=== PATIENT | male | born 1940 | race Caucasian/White ===

== ENCOUNTER → 2016-04-09 | Outpatient (CLI) | payer OTHER ==
[~2016-04-09] MED LIST: ADULT LOW DOSE81 M1 PO; ADVAIR HFA120 INHAL1 IH; ASCORBIC ACID100 MG PO; ASPIR 8181 M1 PO; ASPIRIN E.C.81 M1 PO; ASPIRIN81 M2 PO; AVANDAMET PO; Advair HFA 230/21 IH; Aspirin Chewable PO; CEFTIN500 MG PO; CENTRUM SILVER1 EACH PO; CLARITIN,ALAVAR10 MG PO; Claritin,Alavart PO; DIGOXIN PO; DIGOXIN125 MCG PO; DIGOXIN250 MCG PO; DUONEB 2.5-0.5 M3 ML IH; ENDOCET 5-3251 EACH PO; FISH OIL; FISH OIL 1,0001 EA10 PO; FISH OIL CONC1 EACH PO; FISH OIL PO; FISH OIL SOFTG1 EACH PO; FLONASE16 G1 BOTH NARES; Fish Oil PO; Flonase BOTH NARES; GLIPIZIDE XL10 M1 PO; GLUTOSE 1537.5 GM PO; HUMALOG; HUMALOG100 UNIT/1 SC; LANOXIN,DIGIT0.25 MG PO; LANOXIN125 MCG PO; LANTUS 10100 UNITS/ SC; LANTUS 3 M100 UNITS/ SC; LANTUS 3 M100 UNITS1 SC; LASIX20 MG PO; LAXATIVE5 M1 PO; LIDODERM 5% P1 PATCH TD; LISINOPRIL10 MG PO; LISINOPRIL20 MG PO; Levaquin PO; METOPROLOL SUCC25 MG PO; METOPROLOL SUCC50 MG PO; MUCINEX600 MG PO; MULTIVITAMIN1 EAC2 PO; NOHOMEMEDS; NORCO 5/3251 TABLET PO; NOVOLOG 10100 UNITS/ SC; NOVOLOG PE100 UNITS/ SC; NOVOLOG100 UNIT/1 SQ; Nitrostat,NitroQuick SL; Oscal 500 w/Vitamin PO; PRADAXA150 MG PO; Pradaxa PO; Pravachol PO; REMEDY ANTIFUNG85 GM TP; SIMVASTATIN10 M1 PO; SIMVASTATIN10 MG PO; SIMVASTATIN40 MG PO; SPIRIVA1 INHALATI IH; SYMBICORT60 INHALAT IH; Senokot S,Pericolace PO; Symbicort 160-4.5 mc IH; THERAGRAN1 TABLET PO; TOPROL XL50 MG PO; TYLENOL ARTHRI650 MG PO; TYLENOL REGULA325 MG PO; Theragran PO; Toprol XL PO; Tylenol/Codeine #3 PO; VITAMIN D-32000 UNIT PO; VITAMIN D2000 UNIT PO; VITAMIN D400 UNIT PO; VITAMIN E PO; VITAMIN E400 UNI3 PO; Vitamin D PO; ZESTRIL,PRINIVI10 M1 PO; ZESTRIL10 MG PO; ZITHROMAX Z-PA250 MG PO; ZOCOR10 MG PO; ZOFRAN4 MG PO; Zestril,Prinivil PO; Zocor PO; predniSONE PO; unknown meds
== END ==
LOC: RAD 13:15
DX: R13.11 Dysphagia, oral phase (principal); R68.89 Other general symptoms and signs; R63.3 Feeding difficulties
CPT/HCPCS: 74230; 92611 GN; G8996 GN CI; G8997 GN CI; G8998 GN CI

== ENCOUNTER 2016-07-17 16:42 | Inpatient (IN) | payer OTHER ==
[~2016-07-17] VITALS: Ht 170.2 cm; Wt 66.1 kg
[2016-07-17 18:34] LABS: CHLORIDE 105 mEq/L (99-109); SODIUM 141 mEq/L (136-147)
[2016-07-17 18:35] LABS: POTASSIUM 5.8 mEq/L (3.7-5.4)
[2016-07-17 18:38] LABS: ANION GAP 10 MEQ/L (2-14); TOTAL BILIRUBIN 0.6 mg/dL (0.0-1.0)
[2016-07-17 18:40] LABS: ALKALINE PHOSPHATASE 100 IU/L (3-129); GFR ESTIMATE (CALCULATED) 37 mL/min/
[2016-07-17 18:41] LABS: GLUCOSE 186 mg/dL (70-99); UREA NITROGEN (BUN) 45 mg/dL (9-23)
[2016-07-17 18:44] LABS: TROP-I INTERPRETATION NEGATIVE; TROPONIN-I 0.09 ng/mL (0.0-0.30)
[2016-07-17 18:46] LABS: EOSINOPHIL (%) 0 % (0-5); HEMATOCRIT 22.1 % (38.0-50.0); IMMATURE GRANULOCYTE (%) 1.6 % (0.0-0.7); IMMATURE GRANULOCYTE COUNT 0.1 K/uL; LYMPHOCYTE COUNT 0.3 K/uL (1.0-2.8); MCH 27.1 PG (29.0-34.0); MCHC 29.4 G/DL (30.0-36.0); MCV 92.1 FL (86-99); MEAN PLAT.VOLUME 10.5 uM^3 (9.0-12.4); MONOCYTE (%) 6.9 % (3-12); MONOCYTE COUNT 0.5 K/uL (0-0.8); NEUTROPHIL (%) 86.6 % (45-76); NRBC (%) 0.4 /100 WBC (0-0); PLATELET COUNT 256 K/uL (156-360); RBC DIS.WIDTH-CV 15.9 % (11.8-14.6); RBC DIS.WIDTH-SD 52.9 % (39-53); WHITE BLOOD COUNT 6.9 K/uL (4.1-10.2)
[2016-07-17] MEDS ORDERED: CLARITIN,ALAVAR10 MG PO (20:43)
[2016-07-17] MEDS ORDERED: LISINOPRIL10 MG PO (20:46)
[2016-07-17] MEDS ORDERED: METOPROLOL SUCC50 MG PO (20:47)
[2016-07-17] MEDS ORDERED: ONE-A-DAY ESSE1 EAC1 PO (20:48)
[2016-07-17] MEDS ORDERED: PREDNISONE5 MG PO (20:48)
[2016-07-17] MEDS ORDERED: SPIRIVA1 INHALATI IH (20:49)
[2016-07-17] MEDS ORDERED: MIRTAZAPINE7.5 MG PO (20:49)
[2016-07-17] MEDS ORDERED: ADVAIR 250/501 DISK IH (20:49)
[2016-07-17] MEDS ORDERED: ELIQUIS5 MG PO (20:50)
[2016-07-17] MEDS ORDERED: PROBIOTIC1 EAC1 PO (20:51)
[2016-07-17] MEDS ORDERED: HUMALOG100 UNIT/2 SC (20:52)
[2016-07-17] MEDS ORDERED: PROVENTIL,2.5 MG/3 M IH (20:53)
[2016-07-17] MEDS ORDERED: DUONEB 2.5-0.5 M3 ML AEROSOL (20:53)
[2016-07-17] MEDS ORDERED: DULCOLAX10 MG PR (20:54)
[2016-07-17] MEDS ORDERED: DULCOLAX5 MG PO (20:54)
[2016-07-17] MEDS ORDERED: FLEET ENEMA-AD118 ML PR (20:54)
[2016-07-17] MEDS ORDERED: GLUCAGEN1 MG IM (20:55)
[2016-07-17] MEDS ORDERED: PHILLIPS'400 MG/5 M PO (20:56)
[2016-07-17] MEDS ORDERED: LEVAQUIN500 MG PO (20:56)
[2016-07-17] MEDS ORDERED: ULTRAM50 MG PO (20:57)
[2016-07-17] MEDS ORDERED: ZOFRAN4 MG PO (20:58)
[2016-07-17 23:59] VITALS: BP 144/68
[2016-07-18] VITALS (18 sets, daily range): BP systolic 114–193; BP diastolic 64–90
[2016-07-18 00:36] LABS: POINT-OF-CARE METER ID UU13113725
[2016-07-18 06:26] LABS: POINT-OF-CARE METER ID UU13113725
[2016-07-18 07:54] LABS: HEMATOCRIT 30.1 % (38.0-50.0); MCV 88.5 FL (86-99)
[2016-07-18 09:08] LABS: ALKALINE PHOSPHATASE 109 IU/L (3-129); ANION GAP 10 MEQ/L (2-14); CHLORIDE 106 MEQ/L (99-109); GFR ESTIMATE (CALCULATED) 53 mL/min/; GLUCOSE 135 mg/dL (70-99); POTASSIUM 5.2 MEQ/L (3.7-5.4); SAMPLE HEMOLYSIS CHECK 0; SAMPLE ICTERIC CHECK 0; SAMPLE LIPEMIA CHECK 0; SODIUM 142 MEQ/L (136-147); UREA NITROGEN (BUN) 48 mg/dL (9-23)
[2016-07-18 12:45] LABS: POINT-OF-CARE METER ID UU13113725
[2016-07-18 14:49] LABS: HEMATOCRIT 29.7 % (38.0-50.0); MCV 89.7 FL (86-99)
[2016-07-18 17:28] LABS: POINT-OF-CARE METER ID UU13113725
[2016-07-18 18:30] LABS: HEMATOCRIT 31.9 % (38.0-50.0); MCV 89.6 FL (86-99)
[2016-07-18 19:12] LABS: POINT-OF-CARE METER ID UU13113725
[2016-07-18 23:41] LABS: POINT-OF-CARE METER ID UU13113725
[2016-07-19 01:30] LABS: HEMATOCRIT 27.9 % (38.0-50.0); MCV 87.7 FL (86-99)
[2016-07-19 03:26] VITALS: BP 166/73
[2016-07-19 05:41] LABS: POINT-OF-CARE METER ID UU13113725
[2016-07-19 06:31] LABS: EOSINOPHIL (%) 0 % (0-5); HEMATOCRIT 27.5 % (38.0-50.0); IMMATURE GRANULOCYTE (%) 0.8 % (0.0-0.7); IMMATURE GRANULOCYTE COUNT 0.1 K/uL; INSTRUMENT ABS NEUTROPHIL CT 5.4 K/uL; LYMPHOCYTE COUNT 0.3 K/uL (1.0-2.8); MCH 28.3 PG (29.0-34.0); MCHC 31.6 G/DL (30.0-36.0); MCV 89.6 FL (86-99); MEAN PLAT.VOLUME 10.6 uM^3 (9.0-12.4); MONOCYTE (%) 5.6 % (3-12); MONOCYTE COUNT 0.3 K/uL (0-0.8); NEUTROPHIL (%) 89.2 % (45-76); NEUTROPHIL COUNT 5.4 K/uL (1.8-6.4); NRBC (%) 0.3 /100 WBC (0-0); PLATELET COUNT 234 K/uL (156-360); RBC DIS.WIDTH-CV 15.9 % (11.8-14.6); RBC DIS.WIDTH-SD 51.8 % (39-53); WHITE BLOOD COUNT 6.1 K/uL (4.1-10.2)
[2016-07-19 06:44] LABS: RED BLOOD COUNT 3.07 M/uL (4.00-5.50)
[2016-07-19 06:45] VITALS: BP 112/59
[2016-07-19 09:01] LABS: ANION GAP 11 MEQ/L (2-14); CHLORIDE 105 MEQ/L (99-109); GFR ESTIMATE (CALCULATED) > 59 mL/min/; POTASSIUM 4.4 MEQ/L (3.7-5.4); SAMPLE HEMOLYSIS CHECK 0; SAMPLE ICTERIC CHECK 0; SAMPLE LIPEMIA CHECK 0; SODIUM 142 MEQ/L (136-147); UREA NITROGEN (BUN) 44 mg/dL (9-23)
[2016-07-19 09:02] LABS: GLUCOSE 283 mg/dL (70-99)
[2016-07-19 11:02] VITALS: BP 128/60
[2016-07-19 11:42] LABS: POINT-OF-CARE METER ID UU13113725
[2016-07-19 13:06] LABS: HEMATOCRIT 28.6 % (38.0-50.0); MCV 90.5 FL (86-99)
[2016-07-19 13:58] LABS: POINT-OF-CARE METER ID UU13113694
[2016-07-19 14:48] LABS: POINT-OF-CARE METER ID UU13113675
[2016-07-19 15:05] VITALS: BP 133/64
[2016-07-19 16:32] LABS: POINT-OF-CARE METER ID UU13113725
[2016-07-19 19:01] LABS: HEMATOCRIT 28.8 % (38.0-50.0); MCV 90.9 FL (86-99)
[2016-07-19 19:39] VITALS: BP 134/64
[2016-07-19 23:59] VITALS: BP 146/94
[2016-07-20] VITALS (7 sets, daily range): BP systolic 110–173; BP diastolic 62–88
[2016-07-20 00:35] LABS: POINT-OF-CARE METER ID UU13113725
[2016-07-20 08:00] LABS: HEMATOCRIT 27.2 % (38.0-50.0); MCH 28.2 PG (29.0-34.0); MCHC 31.6 G/DL (30.0-36.0); MCV 89.2 FL (86-99); PLATELET COUNT 253 K/uL (156-360); RBC DIS.WIDTH-CV 15.6 % (11.8-14.6); RBC DIS.WIDTH-SD 50.4 % (39-53); RED BLOOD COUNT 3.05 M/uL (4.00-5.50); WHITE BLOOD COUNT 6.6 K/uL (4.1-10.2)
[2016-07-20 16:16] LABS: POINT-OF-CARE METER ID UU13113725
[2016-07-21 03:15] VITALS: BP 160/81
[2016-07-21 07:31] LABS: GFR ESTIMATE (CALCULATED) > 59 mL/min/
[2016-07-21 07:47] VITALS: BP 149/68
[2016-07-21 15:30] VITALS: BP 128/60
[2016-07-21 15:51] LABS: POINT-OF-CARE METER ID UU13113725
[2016-07-21 19:45] VITALS: BP 139/62
[2016-07-21 21:04] LABS: POINT-OF-CARE METER ID UU13113725
[2016-07-21 23:05] VITALS: BP 154/73
[2016-07-22 06:24] LABS: POINT-OF-CARE METER ID UU13113725
[2016-07-22 08:00] VITALS: BP 163/77
[2016-07-22 10:13] LABS: GFR ESTIMATE (CALCULATED) > 59 mL/min/; UREA NITROGEN (BUN) 48 mg/dL (9-23)
[2016-07-22 12:42] LABS: POINT-OF-CARE METER ID UU13113725
[2016-07-22 16:43] LABS: POINT-OF-CARE METER ID UU13113725
[2016-07-22 18:00] VITALS: BP 181/79
[2016-07-22 21:08] LABS: POINT-OF-CARE METER ID UU13113725
[2016-07-23 00:08] VITALS: BP 150/68
[2016-07-23 06:15] LABS: HEMATOCRIT 26.8 % (38.0-50.0); MCH 28.1 PG (29.0-34.0); MCHC 31.3 G/DL (30.0-36.0); MCV 89.6 FL (86-99); MEAN PLAT.VOLUME 10.2 uM^3 (9.0-12.4); PLATELET COUNT 268 K/uL (156-360); RBC DIS.WIDTH-CV 14.8 % (11.8-14.6); RBC DIS.WIDTH-SD 48.2 % (39-53); RED BLOOD COUNT 2.99 M/uL (4.00-5.50)
[2016-07-23 06:16] LABS: WHITE BLOOD COUNT 10.2 K/uL (4.1-10.2)
[2016-07-23 08:00] VITALS: BP 167/75
[2016-07-23 12:01] LABS: POINT-OF-CARE METER ID UU13113725
[2016-07-23] MEDS ORDERED: AUGMENTIN875 MG PO (14:18)
[2016-07-23] MEDS ORDERED: PREDNISONE10 MG PO (14:22)
== END 2016-07-23 16:43 | DRG 377 ==
LOC: EME 16:42 → 5EAST 21:45 → EDOF 21:45 → 5EAST 22:51
PROVIDERS: Emergency Medicine; Family Medicine; Internal Medicine; Internal Medicine Gastroenterology
PROC: 30233N1 Transfusion of Nonautologous Red Blood Cells into Peripheral Vein, Percutaneous Approach (ICD-10-PCS; principal; 2016-07-17)
PROC: 0DJ08ZZ Inspection of Upper Intestinal Tract, Via Natural or Artificial Opening Endoscopic (ICD-10-PCS; 2016-07-19)
DX: K92.2 Gastrointestinal hemorrhage, unspecified (principal); J18.9 Pneumonia, unspecified organism; N17.9 Acute kidney failure, unspecified; D64.9 Anemia, unspecified; J44.1 Chronic obstructive pulmonary disease with (acute) exacerbation; I48.91 Unspecified atrial fibrillation; E87.5 Hyperkalemia; E87.70 Fluid overload, unspecified; I51.7 Cardiomegaly; I25.10 Atherosclerotic heart disease of native coronary artery without angina pectoris; Z66 Do not resuscitate; Z51.5 Encounter for palliative care; I10 Essential (primary) hypertension; E11.9 Type 2 diabetes mellitus without complications; E78.5 Hyperlipidemia, unspecified; F03.90 Unspecified dementia, unspecified severity, without behavioral disturbance, psychotic disturbance, mood disturbance, and anxiety; I69.354 Hemiplegia and hemiparesis following cerebral infarction affecting left non-dominant side; I25.2 Old myocardial infarction; Z79.01 Long term (current) use of anticoagulants; Z79.4 Long term (current) use of insulin; Z79.82 Long term (current) use of aspirin; Z87.891 Personal history of nicotine dependence; Z91.81 History of falling
CPT/HCPCS: 71010; 71250; 74176; 74230; 80048; 80053; 80202; 81003; 82565; 82948; 83605; 83880; 84484; 84520; 85014; 85018; 85025; 85027; 86900; 86901; 86920; 87040; 92610 GN; 92611 GN; 93005; 94640; 94640 76; 94799; 99202; 99281; 99284; C9113; J0610; J1815; J1940; J2543; J2920; J2930; J3370; J7030; J7042; J7050; P9016